=== PATIENT | male | born 1980 | race Two or more races ===

== ENCOUNTER 2020-06-26 00:21 | Emergency (ER) | payer SELFPAY ==
[~2020-06-26] VITALS: Ht 180.3 cm; Wt 80.7 kg
[2020-06-26 00:25] VITALS: BP 147/95
[2020-06-26] MEDS ORDERED: KETOROLAC TROMETH 60MG/2ML VIAL IM ONE (06:30)
== END 2020-06-26 06:37 | disposition home or self-care (01) ==
LOC: ER 00:21
DX: K64.9 Unspecified hemorrhoids (principal)
CPT/HCPCS: 96372; 99283; J1885